=== PATIENT | female | born 1995 | race Caucasian/White ===

== ENCOUNTER 2017-07-09 09:14 | Emergency (ER) | payer MEDICAID ==
[2017-07-09] MEDS: ACETAMINOPHEN 325 MG TAB PO (10:39)
[2017-07-09 11:01] LABS: ADD UMIC NO; UR ASCORBIC ACID NEGATIVE (NEGATIVE); UR BILIRUBIN (Dip) NEGATIVE (NEGATIVE); UR BLOOD (Dip) NEGATIVE (NEGATIVE); UR CLARITY CLEAR (CLEAR); UR COLOR STRAW (YELLOW); UR GLUCOSE (Dip) NEGATIVE (NEGATIVE); UR KETONES (Dip) NEGATIVE (NEGATIVE); UR LEUKOCYTE ESTERASE (Dip) NEGATIVE Leu/ul (NEGATIVE); UR NITRITE (Dip) NEGATIVE (NEGATIVE); UR SPECIFIC GRAVITY (Dip) 1.009 (1.003-1.030); UR TOTAL PROTEIN (Dip) NEGATIVE (NEGATIVE); UR UROBILINOGEN (Dip) NEGATIVE (NEGATIVE)
== END 2017-07-09 11:57 | disposition home or self-care (01) ==
LOC: FTE 09:14
DX: O26.891 Other specified pregnancy related conditions, first trimester (principal); R10.32 Left lower quadrant pain; Z3A.11 11 weeks gestation of pregnancy
CPT/HCPCS: 76801; 81003; 99284-25

== ENCOUNTER 2018-01-24 08:34 | Inpatient (IN) | payer MEDICAID ==
[2018-01-24] MEDS ORDERED: LIDOCAINE 1% (MPF) 30 ML INJ INJ (10:00)
[2018-01-24] MEDS ORDERED: MISOPROSTOL 200 MCG TAB PR ×2 (10:00→13:00)
[2018-01-24] MEDS ORDERED: OXYTOCIN 30 UNITS/LR 500 ML IV ×2 (10:00→13:00)
[2018-01-24] MEDS ORDERED: METHYLERGONOVINE 0.2 MG INJ IM ×2 (10:00→13:00)
[2018-01-24] MEDS ORDERED: CARBOPROST 250 MCG INJ IM ×2 (10:00→13:00)
[2018-01-24] MEDS: LACTATED RINGER'S 1,000 ML IV* ×3 (10:48→18:00)
[2018-01-24 11:05] LABS: ADD MAN DIFF? NO
[2018-01-24 11:13] LABS: BASOPHILS % 0.2 % (0.0-2.0); HEMOGLOBIN 13.8 g/dl (12.0-16.0); LYMPHOCYTES # 1.3 10^3/ul (0.8-2.9); LYMPHOCYTES % 10.5 % (15.0-51.0); MEAN CORPUSCULAR HEMOGLOBIN 30.3 pg (29.0-33.0); MEAN CORPUSCULAR HGB CONC 34.5 g/dl (32.0-37.0); MEAN CORPUSCULAR VOLUME 87.9 fl (82.0-101.0); MEAN PLATELET VOLUME 12.5 fl (7.4-10.4); MONOCYTE # 0.7 10^3/ul (0.3-0.9); MONOCYTES % 5.7 % (0.0-11.0); NEUTROPHIL # 10.2 10^3/ul (1.6-7.5); NEUTROPHILS % 83.1 % (39.0-77.0); PLATELET COUNT 155 10^3/UL (140-415); RED BLOOD COUNT 4.55 10^6/ul (4.20-5.40); RED CELL DISTRIBUTION WIDTH 13.1 % (11.5-14.5)
[2018-01-24 11:13] LABS: WHITE BLOOD COUNT 12.3 10^3/ul (4.8-10.8)
[2018-01-24 11:25] LABS: INR 0.91; PROTIME 12.3 Sec (11.9-14.9)
[2018-01-24 11:27] LABS: PARTIAL THROMBOPLASTIN TIME 25.3 Sec (25.0-35.0)
[2018-01-24] MEDS: OXYTOCIN 30 UNITS/LR 500 ML IV ×3 (11:40→16:20)
[2018-01-24] MEDS: IBUPROFEN 600 MG TAB PO ×2 (12:00→18:19)
[2018-01-24] MEDS ORDERED: DIBUCAINE 1% 30 GM OINT PR (13:00)
[2018-01-24] MEDS ORDERED: HYDROCODONE/APAP (5/325) TAB PO ×2 (13:00)
[2018-01-24] MEDS ORDERED: BENZOCAINE 20% 56 ML SPRAY TOP (13:00)
[2018-01-24] MEDS: LANOLIN 7 GM TUBE TOP (16:16)
[2018-01-24] MEDS: WITCH HAZEL/GLYCERIN PAD PR (16:16)
[2018-01-24 17:52] LABS: RAPID PLASMA REAGIN NONREACTIVE (NR)
[2018-01-24 18:37] LABS: HEPATITIS B SURFACE ANTIGEN NEGATIVE (NEGATIVE)
[2018-01-25] MEDS: IBUPROFEN 600 MG TAB PO ×5 (04:54→23:31)
[2018-01-25 08:51] LABS: ADD MAN DIFF? NO
[2018-01-25 09:00] LABS: BASOPHILS % 0.2 % (0.0-2.0); EOSINOPHILS % 0.2 % (0.0-7.0); HEMOGLOBIN 11.9 g/dl (12.0-16.0); LYMPHOCYTES # 2.4 10^3/ul (0.8-2.9); MEAN CORPUSCULAR HEMOGLOBIN 30.4 pg (29.0-33.0); MEAN CORPUSCULAR VOLUME 89.3 fl (82.0-101.0); MEAN PLATELET VOLUME 12.9 fl (7.4-10.4); MONOCYTE # 0.7 10^3/ul (0.3-0.9); MONOCYTES % 7.6 % (0.0-11.0); NEUTROPHIL # 6.3 10^3/ul (1.6-7.5); NEUTROPHILS % 66.2 % (39.0-77.0); PLATELET COUNT 158 10^3/UL (140-415); RED BLOOD COUNT 3.92 10^6/ul (4.20-5.40); RED CELL DISTRIBUTION WIDTH 13.2 % (11.5-14.5)
[2018-01-25 09:00] LABS: WHITE BLOOD COUNT 9.5 10^3/ul (4.8-10.8)
[2018-01-26] MEDS: IBUPROFEN 600 MG TAB PO ×2 (05:35→11:30)
[2018-01-26] MEDS: DIPHTH/TET/ACEL PERTUSS (ADULT) 0.5 ML VIAL IM* (09:07)
[2018-01-26] MEDS: MEASLES,MUMPS,RUBELLA VACCINE INJ SC* (09:07)
[2018-01-26] MEDS: VARICELLA VACCINE LIVE/PF 1,350 UNIT/0.5 ML ML SC* (09:52)
== END 2018-01-26 13:55 | disposition home or self-care (01) | DRG 775 ==
LOC: OBT 08:34 → L-D 08:34 → OBT 09:35 → L-D 09:35 → PP1 13:03
PROVIDERS: Obstetrics & Gynecology
PROC: 10E0XZZ Delivery of Products of Conception, External Approach (ICD-10-PCS; principal; 2018-01-24)
PROC: 4A1HXCZ Monitoring of Products of Conception, Cardiac Rate, External Approach (ICD-10-PCS; 2018-01-24)
DX: O80 Encounter for full-term uncomplicated delivery (principal); Z3A.39 39 weeks gestation of pregnancy; Z37.0 Single live birth
CPT/HCPCS: 85025; 85610; 85730; 86592; 86850; 86900; 86901; 87340